=== PATIENT | female | born 1945 | race African-American/Black ===

== ENCOUNTER 2018-02-21 10:59 | Outpatient (CLI) | payer MEDICARE, BC | END 2018-02-21 11:00 | disposition home or self-care (01) | LOC: BICMAMMO 10:59 | PROVIDERS: ATTEND Family Medicine | DX: Z12.31 Encounter for screening mammogram for malignant neoplasm of breast (principal) | CPT/HCPCS: 77063; 77067 ==

== ENCOUNTER 2023-06-07 09:12 | Inpatient (IN) | payer MEDICARE, BC ==
[2023-06-07 10:00] LABS: #Monocytes 1.6 thou/uL (0.11-0.59); #Neutrophils 12.1 thou/uL (1.40-6.50); %Basophils 0.3 % (0.0-1.0); %Eosinophils 0.1 % (0.0-10.0); %Lymphocytes 11.4 % (21.0-51.0); %Monocytes 10.5 % (0.0-10.0); %Neutrophils 77.2 % (42.0-75.0); Hematocrit 30.5 % (36.0-47.0); Hemoglobin 9.9 g/dL (12.0-16.0); Mean Corpuscular HGB CONC 32.5 g/dL (32.0-36.0); Mean Corpuscular Hemoglobin 29.1 pg (27.0-31.0); Mean Corpuscular Volume 89.7 fl (78.0-98.0); Mean Platelet Volume 10.5 fL (7.4-10.4); Platelet Count 331 10x3/uL (130-400); RBC Distribution Width 13.6 % (11.5-14.5); White Blood Cell (WBC) Count 15.7 10x3/uL (4.8-10.8)
[2023-06-07 10:35] LABS: ALT (SGPT) 12 U/L (8-55); AST (SGOT) 20 U/L (5-34); Albumin 3.8 g/dL (3.4-4.8); Alkaline Phosphatase 93 U/L (40-110); Anion Gap 18 mmol/L (10-20); BUN (Urea Nitrogen) 35 mg/dL (9.8-20.1); Bilirubin, Total 0.8 mg/dL (0.2-1.2); Calc. Creatinine Clearance 0 mL/min (70-130); Calcium 9.6 mg/dL (7.8-10.44); Carbon Dioxide 22 mmol/L (23-31); Chloride 101 mmol/L (98-107); Estimated GFR 17; Globulin 3.4 g/dL (2.4-3.5); Glucose 124 mg/dL (83-110); Protein, Total 7.2 g/dL (5.8-8.1); Sodium 137 mmol/L (136-145)
[2023-06-07 10:54] LABS: SARS-CoV-2 NAA Rapid Test Not Detected (NotDetected)
[2023-06-07 11:04] LABS: CKMB 0.8 ng/mL (0-6.6)
[2023-06-07 11:31] LABS: Bacteria/HPF None Seen HPF (None Seen); Bilirubin Negative (Negative); Blood, Urine Negative (Negative); CAUTI Indications for Culture Fever or rigors; Clarity Turbid (Clear); Glucose, Urine (Dipstick) Normal (Negative); Ketone, Urine Trace mg/dL (Negative); Leukocyte Negative Leu/uL (Negative); Nitrite Negative (Negative); Protein, Urine (Dipstick) 30 mg/dL (Neg-Trace); RBC/HPF 0-3 HPF (0-3); Specific Gravity, Urine 1.019 (1.002-1.036); Urobilinogen Normal mg/dL (Less than 2); WBC/HPF 0-3 HPF (0-3)
[2023-06-07] MEDS ORDERED: Cefepime 2 GM VIAL ONE (11:33)
[2023-06-07 11:49] LABS: Urine Culture Reflex No No
[2023-06-07] MEDS ORDERED: Vancomycin 1 GM/200 ML (FROZEN) BAG ONE (13:42)
[2023-06-07 14:15] LABS: Critical Call Chem Troponin I DECREASE; Troponin I 0.284 ng/mL (< 0.028)
[2023-06-07] MEDS ORDERED: Bisacodyl 5 MG TAB PO PRN (15:08)
[2023-06-07] MEDS ORDERED: Ondansetron PF 4 MG/2 ML Vial IVP PRN (15:08)
[2023-06-07] MEDS ORDERED: Colchicine 0.6 MG TAB PO SCH ×2 (15:15→16:15)
[2023-06-07] MEDS ORDERED: Heparin 5,000 UNITS/ML VIAL SC SCH (15:15)
[2023-06-07] MEDS: Sodium Chloride 0.9% 1,000 ML IV SCH (15:30)
[2023-06-07 16:01] LABS: Troponin I 0.168 ng/mL (< 0.028)
[2023-06-07 16:44] VITALS: BMI 42.3
[2023-06-07] MEDS ORDERED: Vancomycin 1.5 GRAM/300 ML BAG 1.5 GM in Premix Bag 1 BAG IVPB SCH ×2 (17:45→22:00)
[2023-06-07] MEDS ORDERED: Vancomycin Dose by Levels Sliding Scale (Wt > 99) FS SCH (17:45)
[2023-06-07] MEDS: Acetaminophen 325 MG TAB PO PRN (20:34)
[2023-06-07] MEDS ORDERED: Vancomycin 1 GM in Premix Bag 1 BAG IVPB SCH (21:00)
[2023-06-07] MEDS: Heparin 5,000 UNITS/ML VIAL SC SCH (21:55)
[2023-06-08] MEDS: Cefepime 1 GM in Sodium Chloride 0.9% 100 ML IVPB SCH ×2 (00:26→11:46)
[2023-06-08] MEDS: Sodium Chloride 0.9% 1,000 ML IV SCH ×2 (04:38→19:58)
[2023-06-08 07:58] LABS: #Monocytes 1.5 thou/uL (0.11-0.59); #Neutrophils 9.7 thou/uL (1.40-6.50); %Basophils 0.2 % (0.0-1.0); %Eosinophils 0.2 % (0.0-10.0); %Lymphocytes 11.2 % (21.0-51.0); %Monocytes 11.9 % (0.0-10.0); Hematocrit 28.2 % (36.0-47.0); Hemoglobin 8.7 g/dL (12.0-16.0); Mean Corpuscular HGB CONC 30.9 g/dL (32.0-36.0); Mean Corpuscular Hemoglobin 28.6 pg (27.0-31.0); Mean Platelet Volume 11.2 fL (7.4-10.4); Platelet Count 302 10x3/uL (130-400); RBC Distribution Width 13.9 % (11.5-14.5); Red Blood Cell (RBC) Count 3.04 mill/uL (4.20-5.40); White Blood Cell (WBC) Count 12.7 10x3/uL (4.8-10.8)
[2023-06-08 08:10] LABS: Mean Corpuscular Volume 92.8 fl (78.0-98.0)
[2023-06-08] MEDS: Acetaminophen 325 MG TAB PO PRN (09:09)
[2023-06-08] MEDS: Heparin 5,000 UNITS/ML VIAL SC SCH ×3 (09:10→19:57)
[2023-06-08 10:21] LABS: Chloride 107 mmol/L (98-107); Potassium 3.9 mmol/L (3.5-5.1); Sodium 139 mmol/L (136-145)
[2023-06-08 10:22] LABS: Anion Gap 16 mmol/L (10-20); BUN (Urea Nitrogen) 38 mg/dL (9.8-20.1); Calc. Creatinine Clearance 42 mL/min (70-130); Calcium 9.8 mg/dL (7.6-10.4); Carbon Dioxide 20 mmol/L (23-31); Estimated GFR 23; Glucose 120 mg/dL (83-110)
[2023-06-08 11:27] LABS: Anion Gap 5 mmol/L (10-20); BUN (Urea Nitrogen) 35 mg/dL (9.8-20.1); Calc. Creatinine Clearance 43 mL/min (70-130); Calcium 9.4 mg/dL (7.8-10.44); Carbon Dioxide 20 mmol/L (23-31); Chloride 111 mmol/L (98-107); Estimated GFR 24; Glucose 122 mg/dL (83-110); Potassium 3.6 mmol/L (3.5-5.1); Sodium 132 mmol/L (136-145)
[2023-06-08] MEDS ORDERED: VANCOMYCIN IVPB PRN (11:30)
[2023-06-08] MEDS ORDERED: dilTIAZem CD 240 MG CAP PO SCH (12:15)
[2023-06-08 15:33] LABS: Vancomycin, Random 20.2 ug/mL (See Comment)
[2023-06-08] MEDS ORDERED: Vancomycin HCl 750 MG in Sodium Chloride 0.9% 250 ML 250 ML IVPB SCH (16:15)
[2023-06-08] MEDS: Metoprolol Tartrate 100 MG TAB PO SCH (19:57)
[2023-06-09] MEDS: Cefepime 1 GM in Sodium Chloride 0.9% 100 ML IVPB SCH ×3 (00:30→23:30)
[2023-06-09 04:28] LABS: #Eosinphils 0.2 thou/uL (0.0-0.7); #Monocytes 1.6 thou/uL (0.11-0.59); #Neutrophils 8.6 thou/uL (1.40-6.50); %Basophils 0.3 % (0.0-1.0); %Eosinophils 1.3 % (0.0-10.0); %Lymphocytes 12.7 % (21.0-51.0); %Monocytes 13.5 % (0.0-10.0); %Neutrophils 71.8 % (42.0-75.0); Hematocrit 28.2 % (36.0-47.0); Hemoglobin 8.8 g/dL (12.0-16.0); Mean Corpuscular HGB CONC 31.2 g/dL (32.0-36.0); Mean Corpuscular Hemoglobin 28.7 pg (27.0-31.0); Mean Corpuscular Volume 91.9 fl (78.0-98.0); Mean Platelet Volume 10.9 fL (7.4-10.4); Platelet Count 324 10x3/uL (130-400); RBC Distribution Width 13.8 % (11.5-14.5); Red Blood Cell (RBC) Count 3.07 mill/uL (4.20-5.40)
[2023-06-09 05:17] LABS: Anion Gap 15 mmol/L (10-20); BUN (Urea Nitrogen) 36 mg/dL (9.8-20.1); Calc. Creatinine Clearance 52 mL/min (70-130); Calcium 9.6 mg/dL (7.8-10.44); Carbon Dioxide 19 mmol/L (23-31); Chloride 107 mmol/L (98-107); Estimated GFR 30; Glucose 103 mg/dL (83-110); Potassium 3.7 mmol/L (3.5-5.1); Sodium 137 mmol/L (136-145)
[2023-06-09] MEDS: Heparin 5,000 UNITS/ML VIAL SC SCH ×3 (10:07→21:04)
[2023-06-09] MEDS: Ascorbic Acid 500 mg Chewable Tablet PO SCH (10:08)
[2023-06-09] MEDS: dilTIAZem CD 240 MG CAP PO SCH (10:08)
[2023-06-09] MEDS: Metoprolol Tartrate 100 MG TAB PO SCH ×2 (10:08→21:03)
[2023-06-09] MEDS: Ferrous Gluconate 324 MG TAB PO SCH (10:09)
[2023-06-09] MEDS: Magnesium Oxide 400 MG TAB PO SCH (10:09)
[2023-06-09] MEDS: Atorvastatin Calcium 20 MG TAB PO SCH (10:09)
[2023-06-09] MEDS ORDERED: Colchicine 0.6 MG TAB PO SCH (13:15)
[2023-06-09] MEDS ORDERED: predniSONE 20 MG TAB PO SCH (13:15)
[2023-06-09] MEDS: Acetaminophen 325 MG TAB PO PRN (13:29)
[2023-06-09 14:35] LABS: Vancomycin, Trough 16.5 ug/mL
[2023-06-09] MEDS: hydrALAZINE 25 MG TAB PO SCH ×2 (14:56→21:03)
[2023-06-09] MEDS ORDERED: Vancomycin HCl 750 MG in Sodium Chloride 0.9% 250 ML 250 ML IVPB SCH (15:30)
[2023-06-10 04:00] LABS: Anion Gap 17 mmol/L (10-20); BUN (Urea Nitrogen) 32 mg/dL (9.8-20.1); Calc. Creatinine Clearance 65 mL/min (70-130); Calcium 10.1 mg/dL (7.8-10.44); Carbon Dioxide 15 mmol/L (23-31); Chloride 110 mmol/L (98-107); Estimated GFR 38; Glucose 129 mg/dL (83-110); Potassium 4.2 mmol/L (3.5-5.1); Sodium 138 mmol/L (136-145)
[2023-06-10] MEDS: hydrALAZINE 20 MG/ML VIAL SLOW IVP PRN ×2 (05:11→13:37)
[2023-06-10] MEDS: Magnesium Oxide 400 MG TAB PO SCH (09:05)
[2023-06-10] MEDS: Ascorbic Acid 500 mg Chewable Tablet PO SCH (09:06)
[2023-06-10] MEDS: Metoprolol Tartrate 100 MG TAB PO SCH ×2 (09:06→20:33)
[2023-06-10] MEDS: Ferrous Gluconate 324 MG TAB PO SCH (09:06)
[2023-06-10] MEDS: Atorvastatin Calcium 20 MG TAB PO SCH (09:07)
[2023-06-10] MEDS: Heparin 5,000 UNITS/ML VIAL SC SCH ×3 (09:07→20:33)
[2023-06-10] MEDS: hydrALAZINE 25 MG TAB PO SCH ×3 (09:07→20:33)
[2023-06-10] MEDS: dilTIAZem CD 240 MG CAP PO SCH (09:07)
[2023-06-10] MEDS ORDERED: Colchicine 0.6 MG TAB PO SCH ×2 (10:04→10:30)
[2023-06-10] MEDS ORDERED: traMADol HCl 50 MG TAB PO PRN (10:04)
[2023-06-10] MEDS ORDERED: hydrALAZINE 25 MG TAB PO SCH ×3 (10:04→10:30)
[2023-06-10] MEDS ORDERED: predniSONE 20 MG TAB PO SCH ×2 (10:05→10:30)
[2023-06-10] MEDS ORDERED: traMADol HCl 50 MG TAB PO SCH (10:15)
[2023-06-10] MEDS: Cefepime 1 GM in Sodium Chloride 0.9% 100 ML IVPB SCH (11:05)
[2023-06-10 14:59] LABS: Vancomycin, Random 13.9 ug/mL (See Comment)
[2023-06-10] MEDS ORDERED: Vancomycin 1 GM in Premix Bag 1 BAG IVPB SCH (16:00)
[2023-06-10] MEDS: Colchicine 0.6 MG TAB PO SCH (20:33)
[2023-06-11] MEDS: Cefepime 1 GM in Sodium Chloride 0.9% 100 ML IVPB SCH (00:09)
[2023-06-11 05:34] LABS: Anion Gap 11 mmol/L (10-20); BUN (Urea Nitrogen) 33 mg/dL (9.8-20.1); Calc. Creatinine Clearance 69 mL/min (70-130); Calcium 9.9 mg/dL (7.8-10.44); Carbon Dioxide 19 mmol/L (23-31); Chloride 108 mmol/L (98-107); Estimated GFR 41; Glucose 119 mg/dL (83-110); Potassium 4.1 mmol/L (3.5-5.1); Sodium 134 mmol/L (136-145)
[2023-06-11] MEDS ORDERED: predniSONE 20 MG TAB PO SCH (08:00)
[2023-06-11] MEDS: Atorvastatin Calcium 20 MG TAB PO SCH (08:18)
[2023-06-11] MEDS: Ferrous Gluconate 324 MG TAB PO SCH (08:18)
[2023-06-11] MEDS: dilTIAZem CD 240 MG CAP PO SCH (08:18)
[2023-06-11] MEDS: Metoprolol Tartrate 100 MG TAB PO SCH (08:18)
[2023-06-11] MEDS: Heparin 5,000 UNITS/ML VIAL SC SCH (08:19)
[2023-06-11] MEDS: Magnesium Oxide 400 MG TAB PO SCH (08:19)
[2023-06-11] MEDS: Ascorbic Acid 500 mg Chewable Tablet PO SCH (08:19)
[2023-06-11] MEDS: Colchicine 0.6 MG TAB PO SCH (08:19)
[2023-06-11] MEDS: hydrALAZINE 25 MG TAB PO SCH (08:19)
[2023-06-11 08:27] VITALS: TEMP 97.6
[2023-06-11 09:45] VITALS: BP 144/83
== END 2023-06-11 11:20 | disposition home or self-care (01) | DRG 871 ==
LOC: ERS 09:12 → ERHOLD 12:56 → 2NO 18:15
PROVIDERS: ADMIT Internal Medicine; ATTEND Family Medicine
PROC: 0T9B70Z Drainage of Bladder with Drainage Device, Via Natural or Artificial Opening (ICD-10-PCS; principal; 2023-06-08)
PROC: 3E03329 Introduction of Other Anti-infective into Peripheral Vein, Percutaneous Approach (ICD-10-PCS; 2023-06-08)
DX: A41.9 Sepsis, unspecified organism (principal); I21.A1 Myocardial infarction type 2; N18.4 Chronic kidney disease, stage 4 (severe); N17.9 Acute kidney failure, unspecified; E87.1 Hypo-osmolality and hyponatremia; E87.20 Acidosis, unspecified; L03.116 Cellulitis of left lower limb; L03.115 Cellulitis of right lower limb; E78.5 Hyperlipidemia, unspecified; R65.20 Severe sepsis without septic shock; M19.90 Unspecified osteoarthritis, unspecified site; I12.9 Hypertensive chronic kidney disease with stage 1 through stage 4 chronic kidney disease, or unspecified chronic kidney disease; M10.9 Gout, unspecified; Z79.82 Long term (current) use of aspirin; Z98.890 Other specified postprocedural states; D63.1 Anemia in chronic kidney disease
CPT/HCPCS: 36415; 36416; 51701; 71045; 71046; 74176; 80048; 80053; 80202; 81001; 82553; 83605; 84484; 84550; 85025; 86140; 87040; 87077; 87086; 93005; 96361; 96365; 96367; J0360; J0692; J1644; J2405; J3370; J3370-JW; J3490; J7050; J7512